=== PATIENT | female | born 1990 | race Caucasian/White ===

== ENCOUNTER 2023-05-29 11:36 | Emergency (ER) | payer MEDICAID, SELFPAY ==
[2023-05-29 12:03] VITALS: BP 143/93; PULSE 82; RESP 19; TEMP 36.6; O2SAT 98; BMI 71.2
--- NOTE | 2023-05-29 12:07 | ED.SKABFB ---
HPI - Skin/Abscess/Foreign Bdy General Chief complaint: General Medical Stated complaint: Scabies Time Seen by Provider: 05/29/23 11:40 Source: patient Mode of arrival: ambulatory Limitations: no limitations History of Present Illness HPI narrative: 33 yo patient here with c/o scabies exposure no lesions MD complaint: other Onset (ago): day(s) (1) Severity: mild Relieving factors: none Exacerbating factors: none and other Associated symptoms: denies other symptoms Treatments prior to arrival: none Related Data Previous Rx's ?Medication ?Instructions ?Recorded ivermectin 3 mg tablet 38,800 mcg PO QWEEK 2 doses #28 05/29/23 tabs Allergies Allergy/AdvReac Type Severity Reaction Status Date / Time topiramate [From Topamax] Allergy Mild Unknown Verified 05/29/23 12:07 Review of Systems Review of Systems: Constitutional : No Fever, No Chills, Cardiovascular : No Chest Pain, No SOB Respiratory : No Dyspnea Gastrointestinal : No abdominal pain Musculoskeletal : No Joint Swelling Skin : No rash, no skin laceration Neuro : No Weakness, No Numbness Psych : No SI/HI PMFSH Past Medical History Attestation statement: The following information was validated with the patient. Medical History No pertinent past medical history Social History Social History (Updated 05/29/23 @ 12:26 by Siri Krishnan DO) Patient Tobacco Use Status: Tobacco use Unknown Physical Exam Vital Signs: Vital Signs: Last Vital Signs Temp 98 F 05/29/23 12:03 Pulse 82 05/29/23 12:03 Resp 19 05/29/23 12:03 BP 143/93 H 05/29/23 12:03 Pulse Ox 98 05/29/23 12:03 O2 Del Method Room Air 05/29/23 12:03 BMI result Body Mass Index 71.2 Appearance: Alert. Oriented X3. No acute distress. Eyes: Pupils equal, round and reactive to light. ENT: Pharynx normal. Neck: Normal inspection. Neck supple. CVS: Pulses normal. Respiratory: No respiratory distress. Abdomen: atraumatic Skin: Skin warm and dry. Normal skin color. Extremities: No lower extremity edema. Neuro: Oriented X 3. No motor deficit. No sensory deficit. Medical Decision Making Medical Decision Making MDM Narrative: 33 yo patient with scabies exposure no lesions does not want permethrin wants ivermection Differential Diagnosis Differential Diagnoses: The differential diagnosis associated with the presentation includes scabies exposure Independent Historian Clinical information obtained from an independent historian. History obtained from or confirmed by: Other Prescription Management I considered prescription management with: Other Discharge Plan Discharge Clinical Impression: Scabies exposure Patient Disposition: Home, Self-Care Instructions: Scabies (ED) Additional Instructions: return for worsening symptoms, yellow eyes, easy bleeding or any other concerns. you chose ivermectin over permethrin which is not first line Prescriptions: New ivermectin 3 mg tablet 38,800 mcg PO QWEEK Qty: 28 0RF Print Language: [place]
[2023-05-29 12:45] VITALS: BP 143/93; PULSE 82; RESP 19; TEMP 36.6; O2SAT 98
== END 2023-05-29 12:46 | disposition home or self-care (01) ==
PROVIDERS: Emergency Provider Emergency Medicine
DX: Z20.7 Contact with and (suspected) exposure to pediculosis, acariasis and other infestations (principal)
CPT/HCPCS: 99282; 99283